=== PATIENT | male | born 1960 | race Caucasian/White ===

== ENCOUNTER → 2020-09-15 | Outpatient (CLI) | payer BC ==
--- NOTE | 2020-09-15 09:43 | REP ---
INDICATION: KNEE PAIN COMPARISON: None. TECHNIQUE: AP, lateral, bilateral oblique and sunrise views. FINDINGS: The osseous structures and joint spaces are intact and normal. There is no evidence for acute fracture or dislocation. No joint effusion is appreciated. Surrounding soft tissues are unremarkable. No subcutaneous emphysema or radiodense foreign body. IMPRESSION: Normal examination. No acute fracture or dislocation. <Electronically signed by Misha Archibald > 09/15/20 0926
== END ==
LOC: M SOG 09:00
PROVIDERS: ATTEND Orthopaedic Surgery Sports Medicine
DX: M25.562 Pain in left knee (principal)

== ENCOUNTER → 2020-09-19 | Outpatient (CLI) | payer BC ==
--- NOTE | 2020-09-19 20:16 | REP ---
INDICATION: UNSP INJURY OF LEFT QUADRICEPS MUSC/FASC/TEND. COMPARISON: Radiographs 09/15/2020. TECHNIQUE: Multiple sequences obtained in the axial, coronal and sagittal planes. FINDINGS: Menisci: There is relatively mild tearing/fraying peripherally of the posterior horn of the medial meniscus. Cruciate ligaments: Intact. Collateral ligaments: Intact. Extensor mechanism/patellar retinacula: There is a grade 2 partial tear of the distal quadriceps tendon. Cartilage: Smooth, no osteochondral defect. There is mild chondromalacia of the femoral condyles and tibial plateaus. Bone marrow: Normal signal, no edema or occult fracture. Joint fluid: There is a small joint effusion. Popliteal region: No cyst. IMPRESSION: There is relatively mild tearing/fraying peripherally of the posterior horn of the medial meniscus. There is a grade 2 partial tear of the distal quadriceps tendon. Small joint effusion. <Electronically signed by Giorgio Hernandez > 09/19/202011
== END ==
LOC: M RAD 17:48
PROVIDERS: ATTEND Orthopaedic Surgery Sports Medicine
DX: S83.242A Other tear of medial meniscus, current injury, left knee, initial encounter (principal); X58.XXXA Exposure to other specified factors, initial encounter; Y92.9 Unspecified place or not applicable; M25.462 Effusion, left knee

== ENCOUNTER 2020-10-02 10:21 | Outpatient (RCR) | payer BC | END 2020-10-05 | LOC: M PT 10:21 | PROVIDERS: ATTEND Orthopaedic Surgery Sports Medicine | DX: S76.112D Strain of left quadriceps muscle, fascia and tendon, subsequent encounter (principal) ==

== ENCOUNTER → 2022-10-25 | Outpatient (CLI) | payer BC ==
[~2022-10-25] MED LIST: ASPI81CH33 PO
== END ==
LOC: M LABSMTC 11:26
PROVIDERS: ATTEND Anesthesiology
DX: Z01.812 Encounter for preprocedural laboratory examination (principal); Z11.52 Encounter for screening for COVID-19

== ENCOUNTER 2022-10-28 06:43 | Day surgery (SDC) | payer BC ==
[~2022-10-28] VITALS: Ht 203.2 cm; Wt 100.7 kg
[~2022-10-28 06:43] MED LIST changes: +NS 1,000 ML IV ONE
[2022-10-28] MEDS ORDERED: propofoL 200 MG/20 ML VIAL As Ordered ONE ×2 (07:54→08:24)
[2022-10-28] MEDS ORDERED: LIDOCAINE 2% 100MG/5ML SDV (FOR ANES.) As Ordered ONE (07:54)
[2022-10-28] MEDS ORDERED: LABETALOL 100MG/20ML VIAL As Ordered ONE (08:26)
[2022-10-28 09:10] VITALS: BP 149/78
== END 2022-10-28 09:17 | disposition home or self-care (01) ==
LOC: M OPP 06:43
PROVIDERS: ATTEND Internal Medicine Gastroenterology
DX: Z12.11 Encounter for screening for malignant neoplasm of colon (principal); D12.6 Benign neoplasm of colon, unspecified; K57.30 Diverticulosis of large intestine without perforation or abscess without bleeding; K64.4 Residual hemorrhoidal skin tags; K64.8 Other hemorrhoids; Z79.82 Long term (current) use of aspirin; Z79.899 Other long term (current) drug therapy